=== PATIENT | male | born 1970 | race Caucasian/White ===

== ENCOUNTER 2017-12-09 12:30 | Emergency (ER) | payer BC ==
[~2017-12-09] VITALS: Ht 170.2 cm; Wt 108.9 kg
--- OUTSIDE RECORDS SUMMARY | ~2017-12-09 | XMS | Encounter Summary ---
Demographics + + + | Address | [address] | | | [place] [address] | + + + | Home Phone | | + + + | Preferred Language | Unknown | + + + | Marital Status | | + + + | Buddhist Affiliation | 1013 | + + + | Race | Unknown | + + + | Ethnic Group | Unknown | + + + Author + + + | Author | [facility] | | | and [place] | + + + | Organization | [facility] | | | and [place] | + + + | Address | Unknown | + + + | Phone | Unavailable | + + + Support + + + + + | Name | Relationship | Address | Phone | + + + + + | Keiry Sandoval | ECON | [address] | | | | | [place] [address] | | + + + + + | [place] | ECON | Unknown | | + + + + + Care Team Providers + +------+ + | Care Mushroom Packer Name | Role | Phone | + +------+ + | Antwon St MD | PCP | | + +------+ + Reason for Visit + + + | Reason | Comments | + + + | Back Pain | | + + + Encounter Details +--------+ + + + + | Date | Type | Department | Care Team | Description | +--------+ + + + + | 10/15/ | Emergency | [facility] | Too Suresh, | Muscle spasms of | | 2018 | | [facility] | MD [address] | neck (Primary Dx); | | | | CENTER [address] | [place] | Acute bilateral low | | | | [place], [place] | [address] | back pain without | | | | [phone] | | sciatica | | | | [phone] | | | +--------+ + + + + Social History + +-------+ +--------+------+ | Tobacco Use | Types | Packs/Day | Years | Date | | | | | Used | | + +-------+ +--------+------+ | Current Every Day | | | | | | Smoker | | | | | + +-------+ +--------+------+ + +---+---+---+ | Smokeless Tobacco: | | | | | Never Used | | | | + +---+---+---+ + + +---------+ + | Alcohol Use | Drinks/We | oz/Week | Comments | | | ek | | | + + +---------+ + | Yes | 0 | 0.0 | a rare drink of liquor | | | Standard | | | | | drinks or | | | | | | | | | | equivalen | | | | | t | | | + + +---------+ + + + + | Sex Assigned at | Date Recorded | | | | + + + | Not on file | | + + + as of this encounter Last Filed Vital Signs + + + + | Vital Sign | Reading | Time Taken | + + + + | Blood Pressure | 122/82 | 10/15/20171716 PDT | + + + + | Pulse | 74 | 10/15/20171716 PDT | + + + + | Temperature | 36.7 C (98 F) | 10/15/2017 1431 PDT | + + + + | Respiratory Rate | 16 | 10/15/20171716 PDT | + + + + | Oxygen Saturation | 96% | 10/15/20171716 PDT | + + + + | Inhaled Oxygen | - | - | | Concentration | | | + + + + | Weight | 108.9 kg (240 lb) | 10/15/20171430 PDT | + + + + | Height | 170.2 cm (5' 7") | 10/15/20171430 PDT | + + + + | Body Mass Index | 37.59 | 10/15/20171430 PDT | + + + + in this encounter Discharge Instructions The following attachments cannot be sent through Care Everywhere.Back Pain, Relieving (Engl ella)Back, How It Works (Scottish)Back Spasm, No Trauma (Scottish)Muscle Spasm (Scottish)in this encounter Medications at Time of Discharge + + +--------+---------+ + + | Medication | Sig. | Disp. | Refills | Start | End Date | | | | | | Date | | + + +--------+---------+ + + | ASPIRIN PO | Take by mouth as | | | | | | | needed. | | | | | + + +--------+---------+ + + | ibuprofen (ADVIL, | Take 200 mg by mouth | | | | | | MOTRIN) 200 mg | every 6 hours as | | | | | | tablet | needed for Pain. | | | | | + + +--------+---------+ + + | ketorolac | Take 1 tablet by | 20 | 0 | 10/16/19 | | | (TORADOL) 10 MG | mouth every 6 hours | tablet | | 18 | 8 | | tablet | as needed for Pain | | | | | | | for up to 5 days. | | | | | + + +--------+---------+ + + | methocarbamol | Take 1 tablet by | 21 | 0 | 10/16/19 | | | (ROBAXIN) 750 mg | mouth 3 times daily | tablet | | 18 | 8 | | tablet | for 7 days. | | | | | + + +--------+---------+ + + as of this encounter Plan of Treatment Not on fileas of this encounter Visit Diagnoses + + | Diagnosis | + + | Muscle spasms of neck - Primary | + + | Spasm of muscle | + + | Acute bilateral low back pain without sciatica | + + Administered Medications + +--------+ +-------+------+------+ | Medication Order | MAR | Action | Dose | Rate | Site | | | Action | Date | | | | + +--------+ +-------+------+------+ | diazePAM (VALIUM) tablet 10 mg | Given | | 10 mg | | | | 10 mg, Oral, ONCE, Linda 10/15/17 | | 8 16:06 | | | | | at 1550, For 1 dose | | PDT | | | | + +--------+ +-------+------+------+ +---+---+ | | | +---+---+ + +-------+ +-------+---+---+ | ketorolac (TORADOL) tablet 20 | Given | | 20 mg | | | | mg 20 mg, Oral, ONCE, Linda | | 8 16:06 | | | | | 10/15/17 at 1550, For 1 dose | | PDT | | | | + +-------+ +-------+---+---+ +---+---+ | | | +---+---+ in this encounter
--- OUTSIDE RECORDS SUMMARY | ~2017-12-09 | XMS | Encounter Summary ---
Demographics + + + | Address | [address] | | | [place] [address] | + + + | Home Phone | | + + + | Preferred Language | Unknown | + + + | Marital Status | | + + + | Muslim Affiliation | 1013 | + + + | Race | Unknown | + + + | Ethnic Group | Unknown | + + + Author + + + | Author | [facility] | | | and [place] | + + + | Organization | [facility] | | | and [...] | | | | | [place] [address] | | + + + + + | [place] | ECON | Unknown | | + + + + + Care Team Providers + +------+ + | Care Export Packer Name | Role | Phone | [...] + + | 10/15/ | Emergency | [facility] | Too Suresh, | Muscle spasms of | | 2018 | | [facility] | MD [address] | neck (Primary Dx); | | | | CENTER [address] | [place] | Acute bilateral low | | | | [place], [place] | [address] | back pain without | | | | [phone] | | sciatica | | | | [phone] | | | +--------+ + + + [...] Pain, Relieving (Engl ella)Back, How It Works (Botswanan)Back Spasm, No Trauma (Botswanan)Muscle Spasm (Botswanan)in this encounter Medications at Time of Discharge [...]
--- OUTSIDE RECORDS SUMMARY | ~2017-12-09 | XMS | Clinical Summary ---
Demographics + + + | Address | [address] | | | [place] [address] | + + + | Home Phone | | + + + | Preferred Language | Unknown | + + + | Marital Status | | + + + | Yazidism Affiliation | 1013 | + + + | Race | Unknown | + + + | Ethnic Group | Unknown | + + + Author + + + | Author | [facility] | | | and [place] | + + + | Organization | [facility] | | | and [place] | + + + | Address | Unknown | + + + | Phone | Unavailable | + + + Support + + + + + | Name | Relationship | Address | Phone | + + + + + | Keiry Rey | ECON | [address] | | | | | [place] [address] | | + + + + + | Hubert Rey | ECON | Unknown | | + + + + + Care Team Providers + +------+ + | Care Apparel Machinery Instructor Name | Role | Phone | + +------+ + | Antwon St MD | PP | | + +------+ + Allergies No Known Allergies Current Medications + + +-------+---------+------+------+-------+ | Prescription | Sig. | Disp. | Refills | Star | End | Statu | | | | | | t | Date | s | | | | | | Date | | | + + +-------+---------+------+------+-------+ | ASPIRIN PO | Take by mouth as | | | | | Activ | | | needed. | | | | | e | + + +-------+---------+------+------+-------+ | ibuprofen (ADVIL, | Take 200 mg by mouth | | | | | Activ | | MOTRIN) 200 mg | every 6 hours as | | | | | e | | tablet | needed for Pain. | | | | | | + + +-------+---------+------+------+-------+ Active Problems No known active problems Encounters +--------+ + + + + | Date | Type | Specialty | Care Team | Description | +--------+ + + + + | 10/15/ | Emergency | | Too Suresh, | Muscle spasms of | | 2018 | | | MD | neck (Primary Dx); | | | | | | Acute bilateral low | | | | | | back pain without | | | | | | sciatica | +--------+ + + + + from Last 3 Months Family History + + +------+ + | Medical History | Relation | Name | Comments | + + +------+ + | Sleep Apnea | Mother | | | + + +------+ + + +------+--------+ + | Relation | Name | Status | Comments | + +------+--------+ + | Mother | | | | + +------+--------+ + Social History + +-------+ +--------+------+ | [...] on file | | + + + Last Filed Vital Signs + + + + | Vital Sign | Reading | Time Taken | + + + + | Blood Pressure | 122/82 | 10/15/20171716 PDT | + + + + | Pulse | 74 | 10/15/20171716 PDT | + + + + | Temperature | 36.7 C (98 F) | 10/15/20171430 PDT | + + + [...] 10/15/20171430 PDT | + + + + Plan of Treatment + + + + + | Health Maintenance | Due Date | Last Done | Comments | + + + + + | Vaccine: Influenza | | 02/26/2017 | | | (#1) | 8 | | | + + + + + | Vaccine: | | 02/26/2017 | | | Dtap/Tdap/Td (2 - | 7 | | | | Td) | | | | + + + + + | Vaccine: | Completed | 02/26/2017 | | | Pneumococcal 19-64 | | | | | (PPSV23 only) Medium | | | | | Risk | | | | + + + + + Results Not on filefrom Last 3 Months Insurance +-------+--------+ +------+-------+---------+ | Payer | Benefi | Subscriber | Type | Phone | Address | | | t Plan | ID | | | | | | / | | | | | | | Group | | | | | +-------+--------+ +------+-------+---------+ | BCBS | BCBS | [id number] | PPO | | | | | [place] | | | | | | | L FEP | | | | | +-------+--------+ +------+-------+---------+ + +--------+ +--------+ + + | Guarantor Name | Accoun | Relation to | Date | Phone | Billing Address | | | t Type | Patient | of | | | | | | | | | | + +--------+ +--------+ + + | ARON REY | Person | Self [birth year] | Home: | [address] | | | al/Fam | | 1970 | [phone] | [place] [address] | | | [place] | | | [address] | | + +--------+ +--------+ + +
--- OUTSIDE RECORDS SUMMARY | ~2017-12-09 | XMS | Clinical Summary ---
Demographics + + + | Address | [address] | | | [place] [address] | + + + | Home Phone | | + + + | Preferred Language | Unknown | + + + | Marital Status | | + + + | Confucianism Affiliation | 1013 | + + + | Race | Unknown | + + + | Ethnic Group | Unknown | + + + Author + + + | Author | [facility] | | | and [place] | + + + | Organization | [facility] | | [...] | | | | | [place] [address] | | + + + + + | Hubert Rey | ECON | Unknown | | + + + + + Care Team Providers + +------+ + | Care Dwarf Tree Grower Name | Role | Phone | + [...] +-------+--------+ +------+-------+---------+ | BCBS | BCBS | [id number] | PPO | | | | | [...] | 1970 | [phone] | [place] [address] | | | [place] | | | [address] | | + +--------+ +--------+ + +
== END 2017-12-09 12:40 | disposition home or self-care (01) ==
LOC: ED 12:30
DX: M25.521 Pain in right elbow (principal); M54.5 Low back pain